=== PATIENT | female | born 1995 | race Caucasian/White ===

== ENCOUNTER 2024-09-17 10:47 | Day surgery (SDC) | payer OTHER, SELFPAY ==
[2024-09-03 08:44] VITALS: BMI 25.3
[2024-09-17] VITALS (14 sets, daily range): BP systolic 97–115; BP diastolic 52–69; PULSE 57–79; RESP 10–18; TEMP 36.2–37.3; O2SAT 93–98; BMI 30.7
--- NOTE | 2024-09-17 | PATH_ITS ---
[facility] Accession Number: [id number] No. of containers..01 Tissue . 01 Material submitted: . uterus - UTERUS, CERVIX AND BILATERAL FALLOPIAN TUBES . 01 Diagnosis: UTERUS, CERVIX, AND BILATERAL FALLOPIAN TUBES; HYSTERECTOMY AND BILATERAL SALPINGECTOMY: Uterine weight: 44 grams. Cervix: Mild chronic inflammation and tunnel clusters present; negative for dysplasia and malignancy. Proliferative phase endometrium without endometrial polyps, atypia, hyperplasia, or malignancy. No evidence of adenomyosis, on represnetative sections from the myometrium. Benign bilateral fallopian tubes. [facility] 09/19/2024 1415 Local . 01 Electronically signed: . Chapis Souza MD, Pathologist NPI- [id number] . 01 Gross description: . Received in formalin with two patient identifiers and uterus, cervix, and bilateral fallopian tubes, is an intact uterus (44 grams, 7.2 cm superior to inferior, 4.4 cm medial to lateral, and 2.5 cm anterior to posterior) with an attached cervix (3.0 x 2.7 cm), left attached fallopian tube (6.1 x 0.5 cm), attached right fallopian tube (6.5 x 0.6 cm), with no additional adnexa. . The ectocervix is rodriguez. The anterior margin is inked blue while the posterior margin is inked black. The serosa is violaceous and smooth with no hemorrhage or adhesion identified. The endocervical canal has rodriguez herringbone mucosa and is 2.7 cm in length. The endometrial cavity is 1.7 cm from cornu to cornu, and 3.3 cm in length with pink-rodriguez, velvety endometrium that averages less than 0.1 cm thick. The myometrium is pink-rodriguez with minimal trabeculation and measuring up to 1.5 cm in maximum thickness with no lesions identified. . Both tubes have violaceous, smooth serosa with no cysts identified. The lumen are stellate and unremarkable. . Sql Application Developer sections are submitted as follows: A1: Anterior cervix. A2: Posterior cervix. A3: Anterior full thickness section. A4: Posterior full thickness section. A5: Left fallopian tube to include one-half of bisected fimbriae and cross sections. A6: Right fallopian tube to include one-half of bisected fimbriae and cross sections. ([id number]) /MRV 09/19/2024 1415 Local . 01 Pathologist provided ICD-10: N93.9 . 01 CPT . 594107 Performed at: [address] [facility] [address], [place], [place] [id number] MD David Montaño MD Phone: [phone]
[2024-09-17] MEDS: LACTATED RINGERS 1,000 ML 42 ML IV (11:35)
[2024-09-17] MEDS: ACETAMINOPHEN IV 1,000 MG/100 ML VIAL 400 MG IV (11:46)
[2024-09-17] MEDS: SCOPOLAMINE 1 PATCH TOP (11:46)
--- NOTE | 2024-09-17 11:50 | PM.PREOP ---
Pre-operative Note Interval Note History & Physical reviewed/Exam performed by Physician: Yes Changes to H&P: No H&P completed within 30 days and has changed as indicated here:: 09/05/24 ASA Class (for procedural sedation): II
[2024-09-17] MEDS: CEFAZOLIN 2 GM/100 ML PREMIX 100 ML IV (12:35)
--- NOTE | 2024-09-17 12:55 | SUR.OPER ---
Lithotomy on padded OR bed. Sanders Pad Positioner under torso. Head on pillow, arms padded and tucked at sides. Legs secured in padded yellow fins stirrups.
[2024-09-17] MEDS: BUPIVACAINE 0.25% W/ EPI 30 ML VIAL INJ (13:04)
--- NOTE | 2024-09-17 14:41 | P.OP_ITS ---
Operative Date/Time/Diagnoses Date of procedure: 09/17/24 Time of procedure: 14:42 Pre-op diagnosis: AUB refractory to conservative medical management Post-op diagnosis: same Procedure & Clinicians Procedure: total laparoscopic hysterectomy, removal of RUE nexplanon implant Same procedure as scheduled: Yes Indications: AUB refractory to medical management Surgeon: Ambreen Andersen Pipe Buffer: Yessica Tillman Click Yes if Unassisted: No Anesthesia Type: General Operative Notes Findings: intra-abdominal survey notable for filmy adhesions of L colon to adjacent pelvic sidewall, window-sign within L posterior cul-de-sac with adjacent flame lesions consistent with endometriosis, adhesion of L salpinx to underlying bowel, small 1mm vesicular implant on R uterosacral ligament liver edge, diaphragm, gallbladder and stomach visualized and wnl grossly normal appearing uterus, bilateral fallopian tubes and ovaries Closure Type: primary Estimated Blood Loss (mL): 50 Procedure in detail: The patient was taken to the operating room, placed on the operating table in the supine position and intubated with ETT.? The patient was then placed in the lithotomy position with her legs in Alin stirrups.? The patient was then examined under anesthesia with the above findings, then prepped and draped in a sterile fashion.? A deshpande catheter was placed.? Time out was performed. A sterile speculum was inserted into the vagina.? The anterior cervix was grasped with single tooth tenaculum. The uterus was sounded to 7cm and the VCare manipulator was placed in the standard fashion ensuring the green colpotomy cup was flush around the cervix and the balloon was inflated.? Attention was then turned to the abdominal portion of the case. A 5mm incision was made infraumbilically and abdominal entry was achieved under direct visualization using the 5mm VisaPort trocar.? Abdomen was insufflated to 15mmHg.? Two lateral 5-mm ports were placed in a similar manner under direct visualization followed by an additional L lateral port at [facility] to assist with intracoporeal laparoscopic suturing.? The uterus was anteverted and abdominal survey was noted with findings as noted above. The Powerseal was used to dissect bilateral fallopian tubes away from the mesosalpinx.? The utero- ovarian artery was burned and ligated followed by dissection of the round ligament with the Powerseal device.? This was repeated on the contralateral side.? The uterine arteries were skeletonized bilaterally, and with noted blanching of the uterine corpus the uterine arteries were ligated and dissected. A bladder flap was developed and the bladder reflection was ensured to be below the level of the planned colpotomy. The monopolar hook was then used to incise the cervicouterine stroma until the colpotomy cup was visualized. Using the colpotomy cup as a guide the incision was carried circumferentially using monopolar energy with amputation of the specimen. Noted brisk bleeding from peripheral cervicouterine arterines was observed and hemostasis was achieved using the powerseal. The uterus and bilateral fallopian tubes were then removed via the vagina under direct visualization. The 0-0 barbed ethicon laparoscopic suture was then passed directly into the abdominal cavity via the vagina, needle shielded by ring forceps. The suture was grasped using laparoscopic needle refrigerated national truck driver and brought in its entirety within the abdominal cavity. A sterile sponge packed with sterile packing was then placed in the vagina for maintenance of pneumoinsufflation and attention was returned to the laparoscopic portion of case. The vaginal cuff was closed using 0-0 Stratafix in running fashion with incorporation of bilateral uterosacral ligaments for continued apical support. The pelvis was suction irrigated and all clot was removed from the abdominal cavity. Abdominal survey was completed with findings as noted above. With hemostasis of vaginal cuff visually reconfirmed the lateral trocars were removed under direct visualization. Insufflation was released and umbilical trocar was removed. The skin of all incisions was reapproximated using 4-0 monocryl followed by application of dermabond. All counts correct x2. The patient was awakened from anesthesia, extubated and transported to PACU in stable condition without complication. Complications: none Post-operative Condition: stable Disposition: PACU Plan for aftercare: transfer to acute care unit for routine postoperative care following PACU recovery, anticipate dc to home POD1 pending clinical course
[2024-09-17] MEDS: OXYCODONE IR 5 MG TABLET PO ×2 (15:11→18:41)
[2024-09-17] MEDS: ACETAMINOPHEN 325 MG TABLET 650 MG PO ×2 (15:51→22:21)
--- NOTE | 2024-09-17 18:59 | PC.NURSE ---
Patient arrived from PACU this afternoon, Oriented, slightly sleepy. Able to complete admission assessment and physical assessment. Dermabone sites x3 REUBEN, C/D/I to abdomen. Santana in place, she c/o being uncomfortable. She denies n/v and is able to tolerate 100% of dinner.Encouraged to use IS, SCD's, q2 turn, mobilize as tolerated, bed alarm on, call light in reach, frequent rounding. Significant other Jorge at bedside supportive.
[2024-09-17] MEDS: KETOROLAC 30 MG/ML VIAL IV (20:09)
[2024-09-17] MEDS: MELATONIN 3 MG TABLET 9 MG PO (22:21)
--- NOTE | 2024-09-18 00:02 | PC.NURSE ---
Addendum entered by Marcy Martines R.N. 09/18/24 02:26: Pt ambulated with SBA around to nurses station and back to room. Pt tolerated well, no issues with balance or pain. Pt resting comfortably, call light within reach, bed low/locked, plan of care continues. Original Note: Pt OOB with SBA to bathroom/back to bed. Pt denies dizziness and n/v. Steady gait, minimal pain reported (07/20). Educated pt on calling before getting OOB and monitoring vaginal bleeding. 3x lap sites CDI. Pt resting comfortably, call light within reach, bed low/locked, plan of care continues.
[2024-09-18] MEDS: OXYCODONE IR 5 MG TABLET PO (00:46)
[2024-09-18] MEDS: KETOROLAC 30 MG/ML VIAL IV ×2 (02:32→08:51)
[2024-09-18 04:00] VITALS: BP 96/53; PULSE 61; RESP 17; TEMP 37.1; O2SAT 96
[2024-09-18] MEDS: ACETAMINOPHEN 325 MG TABLET 650 MG PO ×2 (04:32→08:52)
[2024-09-18 05:51] LABS: Add Manual Diff / Slide Review NO; Basophils Absolute Auto 0 /uL (0-100); Basophils Percent Auto 0.1 % (0-2); Eosinophils Absolute Auto 0 /uL (0-450); Hematocrit 32.6 % (36-46); Hemoglobin 10.7 g/dL (12.0-16.0); Lymphocytes Absolute Auto 1000 /uL (1100-4500); Lymphocytes Percent Auto 6.3 % (25-40); Mean Corpuscular HGB Conc 32.7 % (30-36); Mean Corpuscular Volume 79.5 fL (80-100); Monocytes Absolute Auto 700 /uL (0-900); Monocytes Percent Auto 4.5 % (3-14); Neutrophils Absolute Auto 14000 /uL (1500-7000); Neutrophils Percent Auto 89.1 % (50-75); Platelet Count 387 X10^3/uL (150-400); Red Blood Cell Count 4.09 X10^6/uL (4.0-5.2); Red Cell Distribution Width 16.3 % (11.6-14.8); White Blood Cell Count 15.7 X10^3/uL (4.5-11.0)
[2024-09-18 08:00] VITALS: BP 95/41; PULSE 66; RESP 12; TEMP 37.3; O2SAT 96
--- NOTE | 2024-09-18 08:40 | P.DS_ITS ---
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 tolerating diet without n/v, +flatus, ambulating without assistance. 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 Patient underwent procedure as scheduled and without complication. Patient was kept overnight for observation, urinary deshpande catheter removed AM of POD1 with return of spontaneous urinary function. Patient was discharged to home with routine precautions meeting all discharge milestones. Status at Discharge Cognitive/behavioral status at discharge: oriented Functional status at discharge: independent ambulation Overall status at discharge: patient is back to baseline Time Spent with Patient Time spent: Less than 30 minutes Exam Vital Signs (past 8 hours): - 09/18/24 04:00 09/18/24 08:00 Temperature 98.7 F 99.2 F Pulse Rate 61 66 Respiratory Rate 17 12 Blood Pressure 96/53 L 95/41 L Pulse Oximetry 96 96 Oxygen Flow Rate 0 0 Oxygen Delivery Method Room Air Oxygen Flow Rate 0 Const General: cooperative, comfortable and well developed Nutritional Appearance: overweight Orientation: alert, awake and oriented x3 Limitations: mental status not altered Resp Effort & Inspection: normal respiratory effort and able to speak in complete sentences Cardio Pulses: normal peripheral pulses GI Inspection: normal to inspection Other: laparoscopic trocar insertion sites c/d/i with dermabond in place Other: deferred, scant dried blood noted on peripad Skin General: no rashes or lesions noted Neuro General: patient alert, patient awake and patient oriented x3 Extrem General: normal to inspection Psych Mental Status: mental status grossly normal Judgment: judgment good Objective Labs 09/18/24 05:21 Labs: Laboratory Results - last 24 hr 09/18/24 05:21 WBC 15.7 H RBC 4.09 Hgb 10.7 L Hct 32.6 L MCV 79.5 L MCH 26.0 MCHC 32.7 RDW 16.3 H Plt Count 387 Neut % (Auto) 89.1 H Lymph % (Auto) 6.3 L [place] % (Auto) 4.5 Eos % (Auto) 0.0 L Baso % (Auto) 0.1 Neut # (Auto) 98046 H Lymph # (Auto) 1000 L [place] # (Auto) 700 Eos # (Auto) 0 Baso # (Auto) 0 PFSH Medical History (Updated 08/26/24 @ 20:03 by Quyen Keita) Tinnitus Rosacea Acne Depression Anxiety Painful menstrual periods Heavy menstrual period Prediabetes (~2023) Pain due to intrauterine contraceptive device (IUD) Breakthrough bleeding on Nexplanon Abnormal uterine bleeding (AUB) Social History household members: spouse Smoking Status: Former smoker alcohol intake: current Discharge Plan Discharge Plan Patient Disposition: Home Provider Discharge Comment: Nothing in the vagina for 6 weeks. No tampons, douching, swimming in fresh water/pools/hot tubs. Tub baths are okay after 4 weeks if the tub is cleaned well first. No lifting over 10lbs (includes cats!). Call Dr. Andersen with any questions or concerns Discharge orders & Medications Discharge Orders: Discharge (Order); Ordered 09/18/24 Ordered By: Ambreen Andersen Prescriptions: Continued bupropion HCl 150 mg tablet extended release 24 hr 150 mg PO DAILY escitalopram oxalate 20 mg tablet 20 mg PO DAILY Follow up/Referrals: Zak Dee [Primary Care Provider] - Visit Report/Discharge Packet Stand Alone Forms: Patient Portal/API Discharge Data Primary Care Provider: Zak Dee Attending Provider: Ambreen Andersen Quality VTE Deep Vein Thrombosis/Pulmonary Embolism Present on Admission: No IH PROFEE Charge Codes Discharge inpatient/observation: [id number]
--- NOTE | 2024-09-18 12:13 | CM.DANOTE ---
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 A/O/indep in room. Per chart review, cleared to dc home with spouse support today. no CM needs identified per chart review. Will continue to follow as needed RAÚL Carmona Discharge Planning/Care Management Advanced directive, confirm from FAMILY Start: 09/17/24 15:35 Freq: Q24H Status: Active Protocol: Document 09/17/24 15:35 EJ (Rec: 09/17/24 19:01 EJ [id number]) Advance Directive, confirm on record Time 16:00 Person contacted Jorge Copy received No CM Discharge Assessment Start: 09/18/24 12:11 Freq: Status: Active Protocol: Document 09/18/24 12:12 SL (Rec: 09/18/24 12:13 SL [id number]) Discharge Planning Assessment Assigned Director Of Securities And Real Estate RAÚL Slaughter DPOA/Assigned Designee Name Ron, spouse Contact Information [phone] Advance Directives? No Advance Directives on File No History Provided By Patient Prior Living Arrangements House Household Members spouse Type of transporation used prior to Drives own vehicle admit Independent with ADL's Yes Is patient alert and oriented? Yes Barriers to Discharge No Discharge Plan Home Referrals Initiated None needed Review Status In Process Please Provide Date Initial DC 09/18/24 Assessment Was Performed Next Review Type Continued Stay Review Pre-Anesthesia Assessment Start: 09/03/24 08:44 Freq: Status: Active Protocol: Document 09/03/24 08:44 LB (Rec: 09/03/24 09:00 LB [id number]) Pre-Anesthesia Assessment PAC Comment 09/03/24 Chart review. Patient Information Reviewed Via Chart Review Comment No testing identified. Primary Care Provider Wally MORAN Seen Specialist in Last 12 Months Yes Specialist Seen Adult Health Clinical Nurse Specialist Primary Language Maori Height 170.18 cm Weight 73.482 kg Body Mass Index (BMI) 25.3 Anesthesia Review Requested No City Mail Carrier No Patient is completely paralyzed or No completely immobile Is patient on oxygen? No Hx Sleep Apnea No Currently Taking a Beta Albert No Anti-Coagulant Therapy No Cardiac Testing No Hx Pacemaker/ICD No Urinary Catheter Present No Diabetes No Presence of External or Internal Medical Yes: Nexplanon. Devices Marital Status Lives With spouse Patient Discharge Plan Description Return Home Emergency Contact Name Jorge Lora - Emergency Contact Advance Directives on File No
--- NOTE | 2024-09-18 13:26 | PC.NURSE ---
Pt alert and oriented pain meds per request. Kae activity well. Up independent in room. Spouse attentive in room. Voiding well after deshpande d/c'd by DR. Andersen. Pt collecting belongings. instructions given. Pt states understanding. Pt escorted to private car and care of spouse.
== END 2024-09-18 13:10 | disposition home or self-care (01) ==
LOC: OR 10:49 → AC 15:19
PROVIDERS: Referring Provider Family Medicine; Visit Provider Obstetrics & Gynecology
PROC: 0UT94ZZ Resection of Uterus, Percutaneous Endoscopic Approach (ICD-10-PCS; CPT 58571; principal; 2024-09-17 12:15)
DX: N93.9 Abnormal uterine and vaginal bleeding, unspecified (principal); N73.6 Female pelvic peritoneal adhesions (postinfective); N72 Inflammatory disease of cervix uteri
CPT/HCPCS: 58571; 11982; 36415; 82962; 85025; J0131; J0690; J1100; J1171; J1885; J2250; J2405; J2704; J3010